=== PATIENT | male | born 1985 | race Caucasian/White ===

== ENCOUNTER 2019-09-24 20:56 | Emergency (ER) | payer OTHER, SELFPAY ==
[2019-09-24 21:17] VITALS: BP 168/113; PULSE 72; RESP 18; TEMP 36.9; O2SAT 98; BMI 29.8
--- NOTE | 2019-09-24 21:33 | XR_ITS ---
WS: [id number] XR chest 1V portable [id number] REASON FOR EXAM: htn FINDINGS: Borderline cardiomegaly is noted. The lung murray are well aerated. No pneumonia, pleural effusion, pulmonary edema, no mass effect. The hilum and apices normal. No osseous abnormalities. XR/XR chest 1V portable [id number] IMPRESSION: Negative chest for active pathology. Borderline cardiomegaly.
--- NOTE | 2019-09-24 21:33 | ECG_ITS ---
Measurements Intervals [place] Rate: 61 P: 14 SD: 135 QRS: -19 QRSD: 123 T: -11 QT: 354 QTc: 358 SINUS RHYTHM POSSIBLE RIGHT VENTRICULAR CONDUCTION DELAY [RSR (QR) IN V1/V2] MODERATE VOLTAGE CRITERIA FOR LVH, CONSIDER NORMAL VARIANT [MEETS CRITERIA IN ONE ONE OF: R(aVL), S(V1), R(V5), R(V5/V6)+S(V1)] NONSPECIFIC ST & T-WAVE ABNORMALITY Compared to ECG 08/17/2015 14:03:40 T-wave abnormality now present ST (T wave) deviation no longer present Electronically Signed On 09-25-2019 17:21:24 CDT by Grant Lama M.D. [email or web address]
--- NOTE | 2019-09-24 21:33 | W.ED.GENADLT ---
HPI - General Adult General: Chief complaint: General Medical Stated complaint: high bp/CP Time Seen by Provider: 09/24/19 21:28 History of Present Illness: HPI narrative: Patient complained about high blood pressure. Patient said he checked his blood pressure [facility] last night when he had a headache and his pressure was up at 140/98. Better this morning then had a headache again today checked his pressure and was high again. Said he has had this happen for about the last 3 months denies any chest pain shortness of breath or other health problems. He does chew tobacco. Dad has high blood pressure. Patient does not get much exercise but does work at [employer] on his feet all day. Does drink a liter of tea a day has coffee in the morning MD complaint: Hypertension uncontrolled Onset (ago): month(s) Severity: moderate Relieving factors: none Exacerbating factors: none Associated symptoms: Reports headache(s); Deny chest pain, dyspnea, nausea, rash or vomiting Review of Systems Const: Denies: fever, chills or body aches Eyes: Denies: change in vision or blurry vision ENMT: Denies: throat pain or nasal congestion Card: Reports: other (High blood pressure); Denies: chest pain or shortness of breath on exertion Resp: Denies: shortness of breath, productive cough or non-productive cough GI: Denies: abdominal pain, nausea or vomiting : Denies: difficulty urinating Musc: Denies: extremity pain Skin/Breast: Denies: rash Neuro: Reports: headache Psych: Denies: anxiety or depression Tim/Lymph: Denies: easy bruising PFSH ED PFSH: Social History Smoking and tobacco status: never smoked Physical Exam Const: COMMON NORMALS: no apparent distress, average body habitus and oriented x3 HENMT: COMMON NORMALS: normocephalic HEAD & SCALP: normal to inspection and normocephalic FACE & SINUS: normal facial exam Eye: COMMON NORMALS: conjunctivae normal GENERAL EYE: normal appearance of both eyes CONJUNCTIVA: Yes conjunctivae normal Neck/C-Spine: COMMON NORMALS: no JVD Chest: COMMONS NORMALS: inspection of chest normal Resp: COMMON NORMALS: normal respiratory effort and clear to auscultation bilaterally AUSCULTATION: clear to auscultation bilaterally Cardio: COMMON NORMALS: no JVD, regular rate and regular rhythm RATE: regular rate RHYTHM: regular rhythm GI: COMMON NORMALS: normal to inspection, nondistended, normoactive bowel sounds Extremity: COMMON NORMALS: normal to inspection and full ROM Neuro: COMMON NORMALS: oriented x3 Course Vital Signs: Vital signs: Vital Signs Temperature 98.5 F 09/24/19 21:17 Pulse Rate 62 09/24/19 23:12 Respiratory Rate 18 09/24/19 23:12 Blood Pressure 154/84 09/24/19 23:12 Pulse Oximetry 95 09/24/19 23:12 [facility] - General Adult Lab Data: Labs: Lab Results 09/24/19 09/24/19 09/24/19 Range/Units 21:48 21:48 22:41 WBC 7.1 (4.0-10.0) 10^3/ uL RBC 4.90 (4.1-5.3) 10^6/u L Hgb 13.8 (11.7-16.6) g/dL Hct 41.7 L (42.0-52.0) % MCV 85.1 (80-94) fL MCH 28.2 (28.0-34.0) pg MCHC 33.1 (30.0-36.0) g/dL RDW 13.9 (12.1-15.1) % Plt Count 244 (130-400) 10^3/c mm MPV 10.2 (7.4-10.4) fL Neut % (Auto) 55.2 % Lymph % (Auto) 34.7 % [place] % (Auto) 7.4 % Eos % (Auto) 2.0 % Baso % (Auto) 0.4 % Neut # (Auto) 3.9 (1.8-7.7) 10^3/u L Lymph # (Auto) 2.5 (0.8-4.8) 10^3/u L [place] # (Auto) 0.5 (0.2-0.9) 10^3/u L Eos # (Auto) 0.1 (0.0-0.8) 10^3/u L Baso # (Auto) 0.0 (0.0-0.1) 10^3/u L Nucleated RBC % (a uto) 0 % Nucleated RBCs # 0.0 /100WBC Sodium 138 (136-145) mmol/L Potassium 3.4 L (3.5-5.1) mmol/L Chloride 102 (98-107) mmol/L Carbon Dioxide 27 (22-29) mmol/L Anion Gap 12.4 (5-19) BUN 14 (6-20) mg/dL Creatinine 1.2 (0.7-1.2) mg/dL GFR Calculation 68.5 L (90-130) mL/min Glucose 119 H (65-115) mg/dL Calculated Osmolal ity 283 L (285-295) mOsm/k g Calcium 9.6 (8.5-10.5) mg/dL Total Bilirubin 0.2 (0.15-1.2) mg/dL AST 26 (0-40) U/L ALT 57 H (0-41) U/L Alkaline Phosphata se 49 (40-130) IU/L Total Protein 7.1 (6.6-8.7) g/dL Albumin 4.3 (3.5-5.2) g/dL Globulin 2.8 (1.3-4.6) g/dL Urine Color Yellow (Yellow) Urine Appearance Clear (CLEAR) Urine pH 6 (5-7) Ur Specific Gravit y 1.025 (1.005-1.030) Urine Protein Neg (Negative) Urine Glucose (UA) Norm (Normal) Urine Ketones Negative (Negative) Urine Blood Neg (Negative) Urine Nitrate Negative (Negative) Urine Bilirubin Neg (NEGATIVE) Urine Urobilinogen Norm (Negative) mg/dL Ur Leukocyte Qi ase Negative (Negative) EKG Data^: EKG 1: EKG interpretation date: 09/24/19 EKG interpretation time: 22:08 Interpretation: EKG shows sinus rhythm RSR in V1 V2 possible left ventricular hypertrophy ventr rate 61 bpm DE interval is 135 ms QRS durations 123 ms Discharge Plan Discharge Patient Disposition: Home, Self-Care Clinical Impression: Benign essential HTN Condition: Stable Prescriptions: New lisinopril 10 mg tablet 10 mg PO DAILY Qty: 14 RF: 0 Discharge Orders: Discharge Order (Routine); Ordered 09/24/19 Ordered By: Juanpablo Velazquez Referrals: Ryan Ferrer MD [Primary Care Provider] - Pierre North Jr, MD [Family Provider] - Discharge Diet: As Directed Discharge Activity: Increase activity as tolerated Patient Instructions: Chronic Hypertension (ED) Activity Restrictions/Additional Instructions: Follow-up with medical provider as directed. Take medications as prescribed. Return to the ER or your medical provider if condition worsens. Please read and understand discharge instructions. If any questions ask please. Make lifestyle changes as discussed with the intake of caffeinated drinks drinks, decrease in nicotine , increase exercise. Check blood pressure twice a day follow-up with primary care provider in 1 to 2 weeks with blood pressure readings Discharge Date/Time: 09/24/19 23:13 Coding Level of Care Code ED Business Applications Developer for Gerald[employer] Fwd Exam Comprehensive
[2019-09-24 22:04] LABS: Basophils % 0.4 %; Eosinophils # 0.1 10^3/uL (0.0-0.8); Hematocrit 41.7 % (42.0-52.0); Hemoglobin 13.8 g/dL (11.7-16.6); Lymphocytes # 2.5 10^3/uL (0.8-4.8); Lymphocytes % 34.7 %; Mean Corpuscular HGB Conc 33.1 g/dL (30.0-36.0); Mean Corpuscular Hemoglobin 28.2 pg (28.0-34.0); Mean Corpuscular Volume 85.1 fL (80-94); Mean Platelet Volume 10.2 fL (7.4-10.4); Monocytes # 0.5 10^3/uL (0.2-0.9); Monocytes % 7.4 %; Neutrophils # 3.9 10^3/uL (1.8-7.7); Neutrophils % 55.2 %; Nucleated Red Blood Cells % 0 %; Platelet Count 244 10^3/cmm (130-400); Red Cell Distribution Width 13.9 % (12.1-15.1); White Blood Count 7.1 10^3/uL (4.0-10.0)
[2019-09-24 22:05] VITALS: BP 177/113
[2019-09-24] MEDS: cloNIDine 0.1 mg Tablet PO (22:05)
[2019-09-24 22:20] LABS: Alanine Aminotransferase 57 U/L (0-41); Albumin Level 4.3 g/dL (3.5-5.2); Alkaline Phosphatase 49 IU/L (40-130); Anion Gap 12.4 (5-19); Aspartate Amino Transferase 26 U/L (0-40); Blood Urea Nitrogen 14 mg/dL (6-20); Calcium 9.6 mg/dL (8.5-10.5); Carbon Dioxide 27 mmol/L (22-29); Chloride 102 mmol/L (98-107); Globulin 2.8 g/dL (1.3-4.6); Glomerular Filtration Rate 68.5 mL/min (90-130); Glucose 119 mg/dL (65-115); Osmolality Calculated 283 mOsm/kg (285-295); Potassium 3.4 mmol/L (3.5-5.1); Sodium 138 mmol/L (136-145); Total Bilirubin 0.2 mg/dL (0.15-1.2); Total Protein 7.1 g/dL (6.6-8.7)
[2019-09-24 22:50] LABS: Add Urine Microscopic? NO
[2019-09-24 22:54] LABS: Bilirubin Urine Neg (NEGATIVE); Blood Urine Neg (Negative); Glucose Urine UA Norm (Normal); Ketones Urine Negative (Negative); Leukocyte Esterase Urine Negative (Negative); Nitrate Urine Negative (Negative); Protein Urine Neg (Negative); Specific Gravity, Urine 1.025 (1.005-1.030); Urine Appearance Clear (CLEAR); Urine Color Yellow (Yellow); Urobilinogen Urine Norm (Negative); pH Urine 6 (5-7)
[2019-09-24] MEDS: amlodipine 5 mg Tablet PO (22:54)
[2019-09-24 23:12] VITALS: BP 154/84; PULSE 62; RESP 18; O2SAT 95
== END 2019-09-24 23:13 | disposition home or self-care (01) ==
PROVIDERS: Emergency Provider Nurse Practitioner Family; Family Provider Pediatrics Adolescent Medicine; PCP Family Medicine
DX: I10 Essential (primary) hypertension (principal); I51.7 Cardiomegaly
CPT/HCPCS: 12345; 71045; 80053; 81003; 85025; 93005; 99282; 99283; A9270

== ENCOUNTER → 2021-07-24 13:05 | Outpatient (BNVA) | payer SELFPAY | PROVIDERS: Family Provider Pediatrics Adolescent Medicine; PCP Family Medicine; Visit Provider Nurse Practitioner Family | DX: Z20.822 Contact with and (suspected) exposure to COVID-19 (principal) | CPT/HCPCS: 87635 ==

== ENCOUNTER → 2023-02-08 13:06 | Outpatient (BNVA) | payer BC, SELFPAY | PROVIDERS: Family Provider Pediatrics Adolescent Medicine; PCP Family Medicine; Referring Provider Family Medicine; Visit Provider Student in an Organized Health Care Education/Training Program | DX: M77.12 Lateral epicondylitis, left elbow (principal) | CPT/HCPCS: 73080 ==